=== PATIENT | male | born 1950 | race Caucasian/White ===

== ENCOUNTER 2018-04-30 07:00 | Day surgery (SDC) | payer MEDICARE, BC ==
[~2018-04-30 07:00] MED LIST: Lactated Ringers 1,000 ML IV SCH; Lidocaine 1%/Sod Bicarbonate in NS 8.4% 1 ML Syringe IDERM PRN; Sodium Chloride 0.9% 10 ML Syringe FLUSH PRN
[2018-04-30] MEDS ORDERED: fentaNYL 100 MCG/2 ML SDV ONE (07:01)
[2018-04-30] MEDS ORDERED: Lidocaine 1% 4 ML ONE (07:01)
[2018-04-30] MEDS ORDERED: Propofol 200 MG/20 ML SDV ONE ×2 (07:01→08:16)
--- NOTE | 2018-04-30 07:17 | PCM.PREANE ---
Preanesthetic Assessment - Anesthesia/Transfusion/Family Hx Anesthesia History: Prior Anesthesia Without Reaction Family History of Anesthesia Reaction: No Transfusion History: No Prior Transfusion(s) Intubation History: Unknown - Review of Systems General: No Symptoms Pulmonary: No Symptoms (WENDY with CPAP/BIPAP noted) Cardiovascular: No Symptoms (history of HTN), Dyspnea on Exertion Gastrointestinal: No Symptoms (History of diverticulosis/GERD-treated.), Diarrhea Neurological: No Symptoms (History of vertigo a few years ago.), Tingling (with positions left hand) Other: Reports: Easy Bleeding, Easy Bruising, Diabetes (AM blood sugar= 110 @ 0545), Depression - Physical Assessment NPO Status Date: 04/29/18 NPO Status Time: 21:00 Pulse: 68 O2 Sat by Pulse Oximetry: 94 Respiratory Rate: 20 Blood Pressure: 138/70 Temperature: 36.6 C Height: 1.75 m Weight: 129 kg ASA Class: 3 Airway Class: Mallampati = 3 Dentition: Reports: Partial (upper partial), Missing Tooth/Teeth Thyro-Mental Finger Breadths: 3 Mouth Opening Finger Breadths: 3 ROM/Head Extension: Full Lungs: Clear to Auscultation, Normal Respiratory Effort Cardiovascular: Regular Rate, Regular Rhythm, No Murmurs - Imaging/EKG Impressions: EKG: SR rate=64, borderline prolonged LYN, left anterior fascicular block, abnormal R wave progression. - Allergies Allergies/Adverse Reactions: Allergies Allergy/AdvReac Type Severity Reaction Status Date / Time [id number] Reductase Allergy Muscle Verified 04/29/18 12:59 Inhibitor Aches - Anesthesia Plan Pre-Op Medication Ordered: Beta Nico Beta Nico: Metoprolol Med Last Dose Date: 04/29/18 Med Last Dose Time: 09:00 - Acknowledgements Anesthesia Type Planned: MAC Pt an Appropriate Candidate for the Planned Anesthesia: Yes Alternatives and Risks of Anesthesia Discussed w Pt/Guardian: Yes Pt/Guardian Understands and Agrees with Anesthesia Plan: Yes PreAnesthesia Questionnaire HEENT History: Reports: Impaired Vision, Other (See Below) Other HEENT History: nasal fracture, wears glasses, has partial Cardiovascular History: Reports: High Cholesterol, Hypertension Respiratory History: Reports: Sleep Apnea Other Respiratory History: c-pap Gastrointestinal History: Reports: Diverticulosis, GERD Genitourinary History: Reports: None LICENSED DIRECT ENTRY MIDWIFE History: Reports: None Musculoskeletal History: Reports: None Neurological History: Reports: None Psychiatric History: Reports: None Endocrine/Metabolic History: Reports: Diabetes, Type II Hematologic History: Reports: None Immunologic History: Reports: None Oncologic (Cancer) History: Reports: None Dermatologic History: Reports: None - Past Surgical History Head Surgeries/Procedures: Reports: None Cardiovascular Surgical History: Reports: None Respiratory Surgical History: Reports: None GI Surgical History: Reports: Colonoscopy, Hernia Repair/Other Female Surgical History: Reports: None Male Surgical History: Reports: None Neurological Surgical History: Reports: None Musculoskeletal Surgical History: Reports: None Oncologic Surgical History: Reports: None Dermatological Surgical History: Reports: None - SUBSTANCE USE Smoking Status *Q: Never Smoker Recreational Drug Use History: No - HOME MEDS Home Medications: Home Meds Aspirin 325 mg PO DAILY 04/29/18 [History] Ezetimibe 10 mg PO DAILY 04/29/18 [History] Fenofibrate Nanocrystallized [Fenofibrate] 145 mg PO DAILY 04/29/18 [History] Fish Oil/Harper-3 Fatty Acids [Fish Oil] 1,200 mg PO BID 04/29/18 [History] Glimepiride [Amaryl] 2 mg PO DAILY 04/29/18 [History] Hydrochlorothiazide [Microzide] 12.5 mg PO QAM 04/29/18 [History] Insulin Degludec [Tresiba Flextouch U-200] 38 units SQ DAILY 04/29/18 [History] Metoprolol Succinate [Toprol XL 100mg] 100 mg PO DAILY 04/29/18 [History] Multivitamin [Poly-Vitamin] 1 tab PO DAILY 04/29/18 [History] Omeprazole 20 mg PO DAILY 04/29/18 [History] Sertraline [Zoloft] 150 mg PO DAILY 04/29/18 [History] Spironolactone 50 mg PO DAILY 04/29/18 [History] amLODIPine Bes/Olmesartan Med [Amlodipine-Olmesartan 10-40 mg] 1 tab PO DAILY [History] metFORMIN HCl [Glucophage] 1,000 mg PO BID 04/29/18 [History] traMADol HCl [Tramadol HCl] 50 mg PO Q6H PRN 04/29/18 [History] - CURRENT (IN HOUSE) MEDS Current Meds: Current Medications Lactated Ringer's (Ringers, Lactated) 1,000 mls @ 125 mls/hr IV ASDIRECTED [facility] Stop: 04/30/18 20:00 Lidocaine/Sodium Bicarbonate (Buffered Lidocaine 1% In Ns 8.4%) 0.25 ml IDERM ONETIME PRN PRN Reason: Prior to IV Start Stop: 04/30/18 20:00 Sodium Chloride (Saline Flush) 10 ml FLUSH ASDIRECTED PRN PRN Reason: Keep Vein Open Stop: 04/30/18 20:00 Discontinued Medications Fentanyl (Sublimaze) Confirm Administered Dose 100 mcg .ROUTE .STK-MED ONE Stop: 04/30/18 07:02 Lidocaine HCl (Xylocaine-Mpf 1%) Confirm Administered Dose 4 mls @ as directed .ROUTE .STK-MED ONE Stop: 04/30/18 07:02 Propofol (Diprivan 20 Ml) Confirm Administered Dose 200 mg .ROUTE .STK-MED ONE Stop: 04/30/18 07:02
[2018-04-30] MEDS ORDERED: Lactated Ringers 1,000 ML ONE (08:30)
[2018-04-30 09:00] VITALS: BP 129/74
--- NOTE | 2018-04-30 09:01 | PCM.OPNOTE ---
- General Post-Op/Procedure Note Date of Surgery/Procedure: 04/30/18 Operative Procedure(s): Colonoscopy to cecum with biopsy Findings: Diffuse diverticulosis with transverse colon polyps Pre Op Diagnosis: colorectal cancer screening Post-Op Diagnosis: diffuse diverticulosis and transverse colon polyps Anesthesia Technique: [facility] Primary Surgeon: Gifty Chauhan Anesthesia Provider: Didi Donahue Pathology: 1. Transverse colon polyp removed with cold biopsy forceps 2. Transverse colon polyp removed with cold biopsy forceps Fluid Replacement, Intraop: 1,000 Output, Urine Amount: 0 EBL in mLs: 0 Drain/Tube Comments:: none Complications: none apparent Condition: Good
--- NOTE | 2018-04-30 09:06 | PCM48HPAN ---
Post Anesthesia Note - EVALUATION WITHIN 48HRS OF ANESTHETIC Vital Signs in Normal Range: Yes Patient Participated in Evaluation: Yes Respiratory Function Stable: Yes Airway Patent: Yes Cardiovascular Function Stable: Yes Hydration Status Stable: Yes Pain Control Satisfactory: Yes Nausea and Vomiting Control Satisfactory: Yes Mental Status Recovered: Yes Pulse Rate: 59 SaO2: 95 Resp Rate: 15 Temperature: 37.3 C Blood Pressure: 129/74
--- NOTE | 2018-04-30 10:08 | PCM48HPAN ---
Post Anesthesia Note - EVALUATION WITHIN 48HRS OF ANESTHETIC Vital Signs in Normal Range: Yes Patient Participated in Evaluation: Yes Respiratory Function Stable: Yes Airway Patent: Yes Cardiovascular Function Stable: Yes Hydration Status Stable: Yes Pain Control Satisfactory: Yes Nausea and Vomiting Control Satisfactory: Yes Mental Status Recovered: Yes Pulse Rate: 59 Resp Rate: 15 Temperature: 99.2 F Blood Pressure: 129/74
--- NOTE | 2018-04-30 10:38 | PCM.SN ---
- Free Text/Narrative Note: Operative Report Date of Surgery/Procedure: 04/30/18 Operative Procedure(s): Colonoscopy to cecum with biopsy Pre Op Diagnosis: colorectal cancer screening Post-Op Diagnosis: diffuse diverticulosis and transverse colon polyps Anesthesia Technique: [facility] Primary Surgeon: Gifty Chauhan Anesthesia Provider: Didi Donahue IV Fluid Replacement, Intraop: 1,000cc Output, Urine Amount: 0 EBL : 0cc Findings: Diffuse diverticulosis with transverse colon polyps Specimens: 1. Transverse colon polyp removed with cold biopsy forceps 2. Transverse colon polyp #2 removed with cold biopsy forceps Indication: The patient is a 67-year-old male who presented to the outpatient clinic requesting colorectal cancer screening. The patient has a history of diverticulosis. He is otherwise asymptomatic. We discussed the procedure of a screening colonoscopy including the polypectomy and biopsy. Risks of bleeding and perforation were discussed, the patient understood and wished to proceed. His written and consent was obtained Description of the procedure: The patient was brought to the endoscopy suite and placed in the left lateral decubitus position. Appropriate monitors were applied. The patient was given MAC anesthesia. An anorectal examination was performed, revealing an anterior skin tag, with no internal abnormalities. The scope was placed into the rectum and advanced to cecum with some difficulty requiring abdominal pressure and change in the patient position. The patients cecum was entered, and the ileocecal valve and appendiceal orifice were identified and normal. At this point, the scope was withdrawn, paying careful attention to the mucosa. The patient had suboptimal bowel prep, allowing for visualization of 80-85% of the mucosa. Polypectomy of 2 transverse colon polyps were taken using cold biopsy forceps. In the rectum, the scope was retroflexed and no abnormalities were noted, except for some hemorrhoidal tissue. The scope was placed back in the lumen and the excess air was aspirated. The patient tolerated the procedure well Complications: none apparent Condition: Good, transported to PACU in stable condition Gifty Chauhan MD General Surgery
== END 2018-04-30 09:28 | disposition home or self-care (01) ==
LOC: JD.SDS 07:00
PROVIDERS: ATTEND Surgery
DX: R19.7 Diarrhea, unspecified (principal); R10.32 Left lower quadrant pain; D12.3 Benign neoplasm of transverse colon; K57.30 Diverticulosis of large intestine without perforation or abscess without bleeding; I10 Essential (primary) hypertension; E11.9 Type 2 diabetes mellitus without complications; K21.9 Gastro-esophageal reflux disease without esophagitis; F32.9 Major depressive disorder, single episode, unspecified; E78.5 Hyperlipidemia, unspecified; L81.8 Other specified disorders of pigmentation; Z79.82 Long term (current) use of aspirin; Z79.84 Long term (current) use of oral hypoglycemic drugs; Z79.899 Other long term (current) drug therapy; Z88.8 Allergy status to other drugs, medicaments and biological substances
CPT/HCPCS: 45380; 93005; J2704; J3010; J7120; 00811; J2001

== ENCOUNTER 2018-10-04 07:08 | Day surgery (SDC) | payer MEDICARE, BC ==
[~2018-10-04 07:08] MED LIST changes: +Acetaminophen 325 MG Tab PO SCH; +Bisacodyl 5 MG Tab PO PRN; +Pregabalin 25 MG Cap PO SCH; +oxyCODONE ER 10 MG TAB.ER PO SCH
[2018-10-04] MEDS ORDERED: Bupivacaine 0.25% 30 ML SDV ONE (07:16)
[2018-10-04] MEDS ORDERED: Iodine/Sodium Iodide 2% Tincture 30 ML Bottle ONE (07:16)
[2018-10-04] MEDS ORDERED: Vancomycin 1 GM SDV ONE (07:16)
[2018-10-04] MEDS ORDERED: fentaNYL 100 MCG/2 ML SDV ONE (07:22)
[2018-10-04] MEDS ORDERED: Propofol 200 MG/20 ML SDV ONE ×2 (07:22→09:00)
[2018-10-04] MEDS ORDERED: Lidocaine 1% 4 ML ONE ×2 (07:23→09:01)
[2018-10-04] MEDS ORDERED: Midazolam 1 MG/ML 2 ML SDV ONE (07:23)
[2018-10-04] MEDS ORDERED: ceFAZolin 1 GM Vial ONE ×4 (07:25→09:03)
--- NOTE | 2018-10-04 07:45 | PCM.PREANE ---
Preanesthetic Assessment - Procedure Proposed Procedure: Left total knee replacement - Anesthesia/Transfusion/Family Hx Anesthesia History: Prior Anesthesia Without Reaction Transfusion History: No Prior Transfusion(s) Intubation History: Unknown - Review of Systems General: No Symptoms Pulmonary: Other (WENDY wears a CPAP mask that is with patient ) Cardiovascular: No Symptoms Gastrointestinal: Other (Gerd - controlled ) Neurological: No Symptoms Other: Reports: Diabetes (DM II ), Depression - Physical Assessment NPO Status Date: 10/03/18 NPO Status Time: 22:00 ASA Class: 3 Mental Status: Alert & Oriented x3 Airway Class: Mallampati = 3 Dentition: Reports: Partial (patient removed ) Thyro-Mental Finger Breadths: 3 Mouth Opening Finger Breadths: 5 ROM/Head Extension: Full Lungs: Clear to Auscultation, Normal Respiratory Effort Cardiovascular: Regular Rate, Regular Rhythm - Lab Values: Laboratory Last Values POC Glucose 128 mg/dL (80-115) H 10/04/18 07:29 MRSA (PCR) Negative 09/22/18 10:46 - Allergies Allergies/Adverse Reactions: Allergies Allergy/AdvReac Type Severity Reaction Status Date / Time [id number] Reductase AdvReac Muscle Verified 10/01/18 14:52 Inhibitor Aches - Blood Blood Available: No - Anesthesia Plan Pre-Op Medication Ordered: None Beta Nico: Metoprolol (took own at 0530) - Acknowledgements Anesthesia Type Planned: Spinal Pt an Appropriate Candidate for the Planned Anesthesia: Yes Alternatives and Risks of Anesthesia Discussed w Pt/Guardian: Yes Pt/Guardian Understands and Agrees with Anesthesia Plan: Yes PreAnesthesia Questionnaire HEENT History: Reports: Impaired Vision, Other (See Below) Other HEENT History: nasal fracture, wears glasses, has partial Cardiovascular History: Reports: High Cholesterol, Hypertension Respiratory History: Reports: Sleep Apnea Other Respiratory History: c-pap Gastrointestinal History: Reports: Colon Polyp, Diverticulosis, GERD Genitourinary History: Reports: Chronic Renal Insuffiency, Renal Calculus BEHAVIORAL HEALTH DIRECTOR History: Reports: None Musculoskeletal History: Reports: Osteoarthritis Neurological History: Reports: Concussion, Migraines Psychiatric History: Reports: Depression Endocrine/Metabolic History: Reports: Diabetes, Type II, Obesity/BMI 30+ Hematologic History: Reports: None Immunologic History: Reports: None Oncologic (Cancer) History: Reports: None Dermatologic History: Reports: None, Other (See Below) Other Dermatologic History: pigmented skin lesion - Past Surgical History Head Surgeries/Procedures: Reports: None Cardiovascular Surgical History: Reports: Other (See Below) Other Cardiovascular Surgeries/Procedures: angiogram Respiratory Surgical History: Reports: None GI Surgical History: Reports: Colonoscopy, Hernia, Abdominal Female Surgical History: Reports: None Male Surgical History: Reports: None Endocrine Surgical History: Reports: None Neurological Surgical History: Reports: None Musculoskeletal Surgical History: Reports: None Oncologic Surgical History: Reports: None Dermatological Surgical History: Reports: None - SUBSTANCE USE Smoking Status *Q: Never Smoker Recreational Drug Use History: No - HOME MEDS Home Medications: Home Meds Ezetimibe 10 mg PO DAILY 04/29/18 [History] Fenofibrate Nanocrystallized [Fenofibrate] 145 mg PO DAILY 04/29/18 [History] Glimepiride [Amaryl] 2 mg PO DAILY 04/29/18 [History] Hydrochlorothiazide [Microzide] 12.5 mg PO QAM 04/29/18 [History] Insulin Degludec [Tresiba Flextouch U-200] 40 units SQ BEDTIME 04/29/18 [History ] Metoprolol Succinate [Toprol XL 100mg] 100 mg PO DAILY 04/29/18 [History] Multivitamin [Poly-Vitamin] 1 tab PO DAILY 04/29/18 [History] Omeprazole 20 mg PO DAILY 04/29/18 [History] Sertraline [Zoloft] 150 mg PO DAILY 04/29/18 [History] amLODIPine Bes/Olmesartan Med [Amlodipine-Olmesartan 10-40 mg] 10 - 40 mg PO DAILY 04/29/18 [History] metFORMIN HCl [Glucophage] 1,000 mg PO BID 04/29/18 [History] traMADol HCl [Tramadol HCl] 50 mg PO Q6H PRN 04/29/18 [History] Fish Oil/Fonda-3 Fatty Acids [Fish Oil 1,000 MG] 1 each PO BID 08/08/18 [History ] Spironolactone [Aldactone] 50 mg PO DAILY 08/08/18 [History] Aspirin [Adult Aspirin] 81 mg PO DAILY 10/01/18 [History] SUMAtriptan [Imitrex] 50 mg PO ASDIRECTED PRN 10/01/18 [History] ZOLMitriptan [Zomig] 5 mg PO ASDIRECTED PRN 10/01/18 [History] - CURRENT (IN HOUSE) MEDS Current Meds: Current Medications Acetaminophen (Tylenol) 975 mg PO ONETIME [facility] Stop: 10/04/18 18:00 Last Admin: 10/04/18 07:32 Dose: 975 mg Aspirin (Ecotrin) 325 mg PO BID [facility] Bisacodyl (Dulcolax) 5 mg PO DAILY PRN PRN Reason: Constipation Morphine Sulfate 8 mg/Epinephrine HCl 0.3 mg/Cefuroxime Sodium 750 mg/Ketorolac Tromethamine 30 mg/Sodium Chloride 27.9 ml 0 mg .XX ONETIME ONE Stop: 10/04/18 08:51 Cyclobenzaprine HCl (Flexeril) 10 mg PO TID PRN PRN Reason: Spasms Docusate Sodium (Colace) 100 mg PO BID [facility]IO[facility] Famotidine (Pepcid) 20 mg PO Q12H [facility] Lactated Ringer's (Ringers, Lactated) 1,000 mls @ 125 mls/hr IV ASDIRECTED [facility] Stop: 10/04/18 23:00 Cefazolin Sodium/Dextrose 2 gm (/ Premix) 50 mls @ 100 mls/hr IV Q8H [facility] Stop: 10/04/18 23:14 Ketorolac Tromethamine (Toradol) 15 mg IVPUSH Q6H PRN PRN Reason: Pain Lidocaine/Sodium Bicarbonate (Buffered Lidocaine 1% In Ns 8.4%) 0.25 ml IDERM ONETIME PRN PRN Reason: Prior to IV Start Stop: 10/04/18 18:00 Magnesium Hydroxide (Milk Of Magnesia) 30 ml PO BID PRN PRN Reason: Constipation Morphine Sulfate (Morphine) 2 mg IVPUSH Q2H PRN PRN Reason: Breakthrough Pain Naloxone HCl (Narcan) 0.1 mg IVPUSH Q5M PRN PRN Reason: Oversedation Ondansetron HCl (Zofran) 4 mg IVPUSH Q6H PRN PRN Reason: Nausea/Vomiting Oxycodone HCl (Oxycontin) 10 mg PO ONETIME [facility] Stop: 10/04/18 18:00 Last Admin: 10/04/18 07:31 Dose: 10 mg Oxycodone/Acetaminophen (Percocet 325-5 Mg) 1 - 2 tab PO Q4H PRN PRN Reason: Pain Pregabalin (Lyrica) 50 mg PO ONETIME [facility] Stop: 10/04/18 18:00 Last Admin: 10/04/18 07:31 Dose: 50 mg Senna (Senna) 8.6 mg PO BID PRN PRN Reason: Constipation Sodium Chloride (Saline Flush) 10 ml FLUSH ASDIRECTED PRN PRN Reason: Keep Vein Open Stop: 10/04/18 18:00 Discontinued Medications Bupivacaine HCl (Marcaine 0.25%) Confirm Administered Dose 30 ml .ROUTE .STK- MED ONE Stop: 10/04/18 07:17 Cefazolin Sodium (Ancef) Confirm Administered Dose 2 gm .ROUTE .STK-MED ONE Stop: 10/04/18 07:26 Cefazolin Sodium (Ancef) Confirm Administered Dose 2 gm .ROUTE .STK-MED ONE Stop: 10/04/18 07:32 Fentanyl (Sublimaze) Confirm Administered Dose 100 mcg .ROUTE .STK-MED ONE Stop: 10/04/18 07:23 Lidocaine HCl (Xylocaine-Mpf 1%) Confirm Administered Dose 4 mls @ as directed .ROUTE .STK-MED ONE Stop: 10/04/18 07:24 Iodine (Iodine 2% Mild Tincture) Confirm Administered Dose 30 ml .ROUTE .STK- MED ONE Stop: 10/04/18 07:17 Midazolam HCl (Versed 1 Mg/Ml) Confirm Administered Dose 2 mg .ROUTE .STK-MED ONE Stop: 10/04/18 07:24 Propofol (Diprivan 20 Ml) Confirm Administered Dose 600 mg .ROUTE .STK-MED ONE Stop: 10/04/18 07:23 Tranexamic Acid (Cyklokapron) Confirm Administered Dose 1,000 mg .ROUTE .STK- MED ONE Stop: 10/04/18 07:17 Vancomycin HCl (Vancomycin) Confirm Administered Dose 1 gm .ROUTE .STK-MED ONE Stop: 10/04/18 07:17
[2018-10-04] MEDS ORDERED: Ropivacaine 0.5% 5 MG/ML 30 ML SDV ONE (07:48)
[2018-10-04] MEDS ORDERED: EPINEPHrine 1 MG/ML SDV ONE (07:48)
[2018-10-04] MEDS ORDERED: ePHEDrine/Normal Saline 25 MG/5 ML Syringe ONE (08:48)
[2018-10-04] MEDS ORDERED: Morphine 8 MG, EPINEPHrine 0.3 MG, Cefuroxime 750 MG, Ketorolac 30 MG, Sodium Chloride ... ONE ×5 (08:50)
[2018-10-04] MEDS ORDERED: Lidocaine 1% 2 ML ONE (09:02)
[2018-10-04] MEDS ORDERED: Ondansetron 4 MG/2 ML SDV ONE (09:02)
[2018-10-04] MEDS ORDERED: Lactated Ringers 1,000 ML ONE (09:25)
[2018-10-04] MEDS ORDERED: HYDROmorphone 0.5 MG/0.5 ML Syringe IVPUSH PRN (10:07)
[2018-10-04] MEDS ORDERED: ePHEDrine 50 MG/ML SDV IVPUSH PRN (10:07)
[2018-10-04] MEDS ORDERED: Ondansetron 4 MG/2 ML SDV IVPUSH PRN ×2 (10:07→11:00)
[2018-10-04] MEDS ORDERED: diphenhydrAMINE 50 MG/ML SDV IVPUSH PRN (10:07)
[2018-10-04] MEDS ORDERED: fentaNYL 100 MCG/2 ML SDV IVPUSH PRN (10:07)
--- NOTE | 2018-10-04 10:10 | PCM.POSTAN ---
POST ANESTHESIA ASSESSMENT - MENTAL STATUS Mental Status: Alert - VITAL SIGNS Pulse Rate: 69 SaO2: 93 Resp Rate: 11 Blood Pressure: 102/51 Temperature: 36.4 C - RESPIRATORY Respiratory Status: Respiratory Rate WNL, Airway Patent, O2 Saturation Stable, Supplemental Oxygen - CARDIOVASCULAR CV Status: Pulse Rate WNL, Blood Pressure Stable - GASTROINTESTINAL GI Status: No Symptoms - POST OP HYDRATION Hydration Status: Adequate & Stable
[2018-10-04] MEDS ORDERED: Phenylephrine 1 MG in Sodium Chloride 0.9% 10 ML IV SCH (10:15)
--- NOTE | 2018-10-04 10:53 | CR ---
Left knee: AP and lateral views of the left knee were obtained. Comparison: No previous knee study. Knee prosthesis is seen. Components are aligned. Soft tissue air is noted from the surgical procedure. Underlying bony structures are intact. Impression: 1. Satisfactory radiographic appearance of recently placed left knee prosthesis. Diagnostic code #2
[2018-10-04] MEDS ORDERED: Naloxone 0.4 MG/ML SDV IVPUSH PRN (11:00)
[2018-10-04] MEDS ORDERED: Ketorolac 15 MG/ML SDV IVPUSH PRN (11:00)
[2018-10-04] MEDS ORDERED: Morphine 2 MG/ML Syringe IVPUSH PRN (11:00)
[2018-10-04] MEDS ORDERED: Magnesium Hydroxide 400 MG/5 ML Susp 30 ML Cup PO PRN (11:00)
[2018-10-04] MEDS ORDERED: Sennosides 8.6 MG Tab PO PRN (11:00)
--- NOTE | 2018-10-04 11:16 | PCM.SN ---
- Free Text/Narrative Note: Left selective femoral nerve block at the adductor canal for post-procedure pain control Time Out: 1047 Start: 1047 End: 1055 Chart reviewed. Consent signed. Questions answered. Appropriate monitors applied. Time out performed. Left mid-shaft femur evaluated with ultrasound. Scanning medially femur, I was able to identify the femoral artery in the adductor canal. The saphenous nerve was lateral to the artery. The skin was prepped lateral to the ultrasound probe with chlorahexadine. The 21ga 4 insulated block needle was inserted under direct ultrasound guidance into the adductor canal. 20mL of 0.5% ropivacaine with 1:200,000 epinephrine was injected cirmcumferentially about the nerve with intermittent negative aspiration every 5mL. Patient tolerated the procedure well. See pictures on progress note and vital signs on nurses notes. Block completed postoperatively. Trae Griffin CRNA
[2018-10-04] MEDS ORDERED: SUMAtriptan 50 MG Tab PO PRN (12:07)
[2018-10-04] MEDS ORDERED: ZOLMITRIPTAN 5 MG PO PRN (12:07)
--- NOTE | 2018-10-04 13:14 | PCM.SN ---
- Free Text/Narrative Note: Tom is a 68 yo male patient of Dr. Shultz who is post-operative day 0 of L TKA. Hospital medicine was consulted for post-operative medical care. At this time he is stable. Pain is controlled. He denies any chest pain, shortness of breath , palpitations, nausea, or vomiting. He carries a history of: HTN, HLD, CKD, OA , WENDY w/ CPAP, GERD, DM2, Depression. He never smoked. He is a full code. His PCP is Dr. Uribe.
[2018-10-04] MEDS: Acetaminophen/oxyCODONE 325-5 MG Tab PO PRN ×3 (13:23→22:15)
[2018-10-04] MEDS: Insulin Lispro 100 Unit/ML 3 ML KwikPen SUBCUT SCH ×3 (13:26→21:01)
[2018-10-04] MEDS: ceFAZolin 2 GM in Premix Bag 1 BAG IV SCH (17:05)
[2018-10-04] MEDS: ceFAZolin 1 GM in Premix Bag 1 BAG IV SCH (17:05)
[2018-10-04] MEDS: Docusate Sodium 100 MG Cap PO SCH (20:53)
[2018-10-04] MEDS ORDERED: Famotidine 20 MG Tab PO SCH (21:00)
[2018-10-04] MEDS ORDERED: INSULIN DEGLUDEC 40 UNIT SUBCUT SCH (21:00)
[2018-10-05] MEDS: ceFAZolin 1 GM in Premix Bag 1 BAG IV SCH ×2 (00:38→08:05)
[2018-10-05] MEDS: ceFAZolin 2 GM in Premix Bag 1 BAG IV SCH ×2 (00:38→08:04)
[2018-10-05] MEDS: Cyclobenzaprine 10 MG Tab PO PRN ×2 (02:27→09:27)
[2018-10-05] MEDS: Acetaminophen/oxyCODONE 325-5 MG Tab PO PRN ×2 (02:27→06:33)
--- NOTE | 2018-10-05 06:50 | PCM.SN ---
- Free Text/Narrative Note: Tom is a 68 yo [address] patient of Dr[address] Shultz who is post-operative day 1 of L TKA. Hospital medicine was consulted for post-operative medical care. At this time he is stable. Pain is controlled. Labs are stable. He denies any chest pain, shortness of breath, palpitations, nausea, or vomiting. He carries a history of : HTN, HLD, CKD, OA, WENDY w/ CPAP, GERD, DM2, Depression. He never smoked. He is a full code. His PCP is Dr. Uribe. From a Hospitalist standpoint, the pt is ready for discharge pending primary team decision.
[2018-10-05] MEDS ORDERED: Hydrochlorothiazide 12.5 MG Cap PO SCH (08:00)
[2018-10-05] MEDS: Insulin Lispro 100 Unit/ML 3 ML KwikPen SUBCUT SCH (08:05)
[2018-10-05] MEDS: Docusate Sodium 100 MG Cap PO SCH (08:06)
[2018-10-05] MEDS: Aspirin 325 MG Tab.EC PO SCH ×2 (08:07→09:27)
--- NOTE | 2018-10-05 08:13 | PCM.SURGPN ---
- General Info Date of Service: 10/05/18 POD#: 1 Functional Status: Reports: Pain Controlled, Tolerating Diet, Ambulating, Urinating, Incentive Spirometry - Review of Systems Musculoskeletal: Reports: Other (The pt states he did well with ambulating in the halls.) - Patient Data Vitals - Most Recent: Last Vital Signs Temp 97.9 F 10/05/18 04:04 Pulse 72 10/05/18 04:04 Resp 16 10/05/18 04:04 BP 125/77 10/05/18 04:04 Pulse Ox 95 10/05/18 04:04 Weight - Most Recent: 292 lb I&O - Last 24 Hours: Intake & Output 10/04/18 10/05/18 10/05/18 22:59 06:59 14:59 Intake Total 380 Balance 380 Lab Results Last 24 Hrs: Laboratory Results - last 24 hr 10/04/18 10/04/18 10/04/18 Range/Units 10:04 12:30 17:04 WBC (4.23-9.07) K/mm3 RBC (4.63-6.08) M/mm3 Hgb (13.7-17.5) gm/L Hct (40.1-51.0) % MCV (79.0-92.2) fl MCH (25.7-32.2) pg MCHC (32.2-35.5) g/dl RDW Std Deviation (35.1-43.9) fL Plt Count (163-337) K/mm3 MPV (9.4-12.3) fl Sodium (136-145) mEq/L Potassium (3.5-5.1) mEq/L Chloride (98-107) mEq/L Carbon Dioxide (21-32) mEq/L Anion Gap (5-15) BUN (7-18) mg/dL Creatinine (0.7-1.3) mg/dL Est Cr Clr Drug Dosing mL/min Estimated GFR (MDRD) (>60) mL/min BUN/Creatinine Ratio (14-18) Glucose (80-115) mg/dL POC Glucose 131 H 165 H 209 H (80-115) mg/dL Calcium (8.5-10.1) mg/dL Total Bilirubin (0.2-1.0) mg/dL AST (15-37) U/L ALT (16-63) U/L Alkaline Phosphatase (46-116) U/L Total Protein (6.4-8.2) g/dl Albumin (3.4-5.0) g/dl Globulin gm/dL Albumin/Globulin Ratio (1-2) 10/04/18 10/05/18 10/05/18 Range/Units 20:41 05:43 05:43 WBC 7.20 (4.23-9.07) K/mm3 RBC 4.33 L (4.63-6.08) M/mm3 Hgb 12.4 L (13.7-17.5) gm/L Hct 37.2 L (40.1-51.0) % MCV 85.9 (79.0-92.2) fl MCH 28.6 (25.7-32.2) pg MCHC 33.3 (32.2-35.5) g/dl RDW Std Deviation 43.3 (35.1-43.9) fL Plt Count 122 L (163-337) K/mm3 MPV 12.3 (9.4-12.3) fl Sodium 138 (136-145) mEq/L Potassium 4.3 (3.5-5.1) mEq/L Chloride 103 (98-107) mEq/L Carbon Dioxide 28 (21-32) mEq/L Anion Gap 11.3 (5-15) BUN 27 H (7-18) mg/dL Creatinine 1.5 H (0.7-1.3) mg/dL Est Cr Clr Drug Dosing 49.34 mL/min Estimated GFR (MDRD) 47 (>60) mL/min BUN/Creatinine Ratio 18.0 (14-18) Glucose 188 H (80-115) mg/dL POC Glucose 275 H (80-115) mg/dL Calcium 9.0 (8.5-10.1) mg/dL Total Bilirubin 0.4 (0.2-1.0) mg/dL AST 22 (15-37) U/L ALT 30 (16-63) U/L Alkaline Phosphatase 46 (46-116) U/L Total Protein 6.2 L (6.4-8.2) g/dl Albumin 3.0 L (3.4-5.0) g/dl Globulin 3.2 gm/dL Albumin/Globulin Ratio 0.9 L (1-2) 10/05/18 Range/Units 06:39 WBC (4.23-9.07) K/mm3 RBC (4.63-6.08) M/mm3 Hgb (13.7-17.5) gm/L Hct (40.1-51.0) % MCV (79.0-92.2) fl MCH (25.7-32.2) pg MCHC (32.2-35.5) g/dl RDW Std Deviation (35.1-43.9) fL Plt Count (163-337) K/mm3 MPV (9.4-12.3) fl Sodium (136-145) mEq/L Potassium (3.5-5.1) mEq/L Chloride (98-107) mEq/L Carbon Dioxide (21-32) mEq/L Anion Gap (5-15) BUN (7-18) mg/dL Creatinine (0.7-1.3) mg/dL Est Cr Clr Drug Dosing mL/min Estimated GFR (MDRD) (>60) mL/min BUN/Creatinine Ratio (14-18) Glucose (80-115) mg/dL POC Glucose 212 H (80-115) mg/dL Calcium (8.5-10.1) mg/dL Total Bilirubin (0.2-1.0) mg/dL AST (15-37) U/L ALT (16-63) U/L Alkaline Phosphatase (46-116) U/L Total Protein (6.4-8.2) g/dl Albumin (3.4-5.0) g/dl Globulin gm/dL Albumin/Globulin Ratio (1-2) Med Orders - Current: Current Medications Amlodipine Besylate (Norvasc) 10 mg PO DAILY [facility] Last Admin: 10/05/18 08:07 Dose: Not Given Aspirin (Ecotrin) 325 mg PO BID [facility] Last Admin: 10/05/18 08:07 Dose: Not Given Bisacodyl (Dulcolax) 5 mg PO DAILY PRN PRN Reason: Constipation Cyclobenzaprine HCl (Flexeril) 10 mg PO TID PRN PRN Reason: Spasms Last Admin: 10/05/18 02:27 Dose: 10 mg Docusate Sodium (Colace) 100 mg PO BID [facility] Last Admin: 10/05/18 08:06 Dose: Not Given Ezetimibe (Zetia) 10 mg PO DAILY [facility] Last Admin: 10/05/18 08:07 Dose: Not Given Fenofibrate (Tricor) 145 mg PO DAILY [facility] Last Admin: 10/05/18 08:07 Dose: Not Given Glimepiride (Amaryl) 2 mg PO DAILY [facility] Last Admin: 10/05/18 08:06 Dose: Not Given Hydrochlorothiazide (Hydrochlorothiazide) 12.5 mg PO QAM [facility] Last Admin: 10/05/18 08:06 Dose: Not Given Cefazolin Sodium/Dextrose 2 gm (/ Premix) 50 mls @ 100 mls/hr IV Q8H [facility] Stop: 10/05/18 09:29 Last Admin: 10/05/18 08:04 Dose: 100 mls/hr Cefazolin Sodium/Dextrose 1 gm (/ Premix) 50 mls @ 100 mls/hr IV Q8H [facility] Stop: 10/05/18 09:29 Last Admin: 10/05/18 08:05 Dose: 100 mls/hr Insulin Human Lispro (Humalog) 0 unit SUBCUT QIDACANDBED [facility]; Protocol Last Admin: 10/05/18 08:05 Dose: 2 unit Losartan Potassium (Cozaar) 100 mg PO DAILY [facility] Last Admin: 10/05/18 08:06 Dose: Not Given Magnesium Hydroxide (Milk Of Magnesia) 30 ml PO BID PRN PRN Reason: Constipation Metformin HCl (Glucophage) 1,000 mg PO BID [facility] Last Admin: 10/05/18 08:07 Dose: Not Given Metoprolol Succinate (Toprol Xl) 100 mg PO DAILY [facility] Last Admin: 10/05/18 08:07 Dose: Not Given Morphine Sulfate (Morphine) 2 mg IVPUSH Q2H PRN PRN Reason: Breakthrough Pain Multivitamins (Thera) 1 each PO DAILY [facility] Last Admin: 10/05/18 08:07 Dose: Not Given Naloxone HCl (Narcan) 0.1 mg IVPUSH Q5M PRN PRN Reason: Oversedation Ondansetron HCl (Zofran) 4 mg IVPUSH Q6H PRN PRN Reason: Nausea/Vomiting Oxycodone/Acetaminophen (Percocet 325-5 Mg) 1 - 2 tab PO Q4H PRN PRN Reason: Pain Last Admin: 10/05/18 06:33 Dose: 2 tab Pantoprazole Sodium (Protonix) 40 mg PO DAILY [facility] Last Admin: 10/05/18 08:07 Dose: Not Given Insulin Degludec [ Tresiba Flextouch U- 200] 40 Units 0 each SUBCUT BEDTIME [facility] Last Admin: 10/04/18 20:58 Dose: 40 each Senna (Senna) 8.6 mg PO BID PRN PRN Reason: Constipation Sertraline HCl (Zoloft) 150 mg PO DAILY [facility] Last Admin: 10/05/18 08:07 Dose: Not Given Spironolactone (Aldactone) 50 mg PO DAILY [facility] Last Admin: 10/05/18 08:06 Dose: Not Given Discontinued Medications Acetaminophen (Tylenol) 975 mg PO ONETIME [facility] Stop: 10/04/18 18:00 Last Admin: 10/04/18 07:32 Dose: 975 mg Bupivacaine HCl (Marcaine 0.25%) Confirm Administered Dose 30 ml .ROUTE .STK- MED ONE Stop: 10/04/18 07:17 Last Admin: 10/04/18 09:21 Dose: 30 ml Cefazolin Sodium (Ancef) Confirm Administered Dose 2 gm .ROUTE .STK-MED ONE Stop: 10/04/18 07:26 Cefazolin Sodium (Ancef) Confirm Administered Dose 2 gm .ROUTE .STK-MED ONE Stop: 10/04/18 07:32 Cefazolin Sodium (Ancef) Confirm Administered Dose 1 gm .ROUTE .STK-MED ONE Stop: 10/04/18 08:35 Last Admin: 10/04/18 09:15 Dose: 2 gm Cefazolin Sodium (Ancef) Confirm Administered Dose 2 gm .ROUTE .STK-MED ONE Stop: 10/04/18 09:04 Morphine Sulfate 8 mg/Epinephrine HCl 0.3 mg/Cefuroxime Sodium 750 mg/Ketorolac Tromethamine 30 mg/Sodium Chloride 27.9 ml 0 mg .XX ONETIME ONE Stop: 10/04/18 08:51 Last Admin: 10/04/18 09:21 Dose: 788.3 mg Diphenhydramine HCl (Benadryl) 25 mg IVPUSH Q6H PRN PRN Reason: pruritis Stop: 10/04/18 16:00 Ephedrine Sulfate (Ephedrine In Ns) Confirm Administered Dose 25 mg .ROUTE .STK- MED ONE Stop: 10/04/18 08:49 Ephedrine Sulfate (Ephedrine Sulfate) 5 mg IVPUSH ASDIRECTED PRN PRN Reason: Hypotension Stop: 10/04/18 16:00 Epinephrine HCl (Adrenalin) Confirm Administered Dose 1 mg .ROUTE .STK-MED ONE Stop: 10/04/18 07:49 Famotidine (Pepcid) 20 mg PO Q12H [facility] Fentanyl (Sublimaze) Confirm Administered Dose 100 mcg .ROUTE .STK-MED ONE Stop: 10/04/18 07:23 Fentanyl (Sublimaze) 50 mcg IVPUSH Q5M PRN PRN Reason: Pain Stop: 10/04/18 14:00 Hydromorphone HCl (Dilaudid) 0.5 mg IVPUSH Q15M PRN PRN Reason: Pain (severe 7-10) Stop: 10/04/18 14:00 Lactated Ringer's (Ringers, Lactated) 1,000 mls @ 125 mls/hr IV ASDIRECTED [facility] Stop: 10/04/18 23:00 Last Admin: 10/04/18 07:29 Dose: 125 mls/hr Lidocaine HCl (Xylocaine-Mpf 1%) Confirm Administered Dose 4 mls @ as directed .ROUTE .ST-MED ONE Stop: 10/04/18 07:24 Lidocaine HCl (Xylocaine-Mpf 1%) Confirm Administered Dose 4 mls @ as directed .ROUTE .STK-MED ONE Stop: 10/04/18 09:02 Lidocaine HCl (Xylocaine-Mpf 1%) Confirm Administered Dose 2 mls @ as directed .ROUTE .ST-MED ONE Stop: 10/04/18 09:03 Lactated Ringer's (Ringers, Lactated) Confirm Administered Dose 1,000 mls @ as directed .ROUTE .STK-MED ONE Stop: 10/04/18 09:26 Phenylephrine HCl 1 mg/ Sodium (Chloride) 10.1 mls @ 1 mls/sec IV TITRATE [facility]; Protocol Stop: 10/04/18 14:00 Iodine (Iodine 2% Mild Tincture) Confirm Administered Dose 30 ml .ROUTE .STK- MED ONE Stop: 10/04/18 07:17 Last Admin: 10/04/18 09:12 Dose: 18 ml Ketorolac Tromethamine (Toradol) 15 mg IVPUSH Q6H PRN PRN Reason: Pain Last Admin: 10/04/18 20:54 Dose: 15 mg Lidocaine/Sodium Bicarbonate (Buffered Lidocaine 1% In Ns 8.4%) 0.25 ml IDERM ONETIME PRN PRN Reason: Prior to IV Start Stop: 10/04/18 18:00 Last Admin: 10/04/18 07:28 Dose: 0.25 ml Midazolam HCl (Versed 1 Mg/Ml) Confirm Administered Dose 2 mg .ROUTE .STK-MED ONE Stop: 10/04/18 07:24 Non-Formulary Medication (Zolmitriptan [Zomig]) 5 mg PO ASDIRECTED PRN PRN Reason: migraine Ondansetron HCl (Zofran) Confirm Administered Dose 4 mg .ROUTE .STK-MED ONE Stop: 10/04/18 09:03 Ondansetron HCl (Zofran) 4 mg IVPUSH ONETIME PRN PRN Reason: Nausea/Vomiting Stop: 10/04/18 14:00 Oxycodone HCl (Oxycontin) 10 mg PO ONETIME [facility] Stop: 10/04/18 18:00 Last Admin: 10/04/18 07:31 Dose: 10 mg Pregabalin (Lyrica) 50 mg PO ONETIME [facility] Stop: 10/04/18 18:00 Last Admin: 10/04/18 07:31 Dose: 50 mg Propofol (Diprivan 20 Ml) Confirm Administered Dose 600 mg .ROUTE .STK-MED ONE Stop: 10/04/18 07:23 Propofol (Diprivan 20 Ml) Confirm Administered Dose 600 mg .ROUTE .STK-MED ONE Stop: 10/04/18 09:01 Ropivacaine (Naropin 0.5%) Confirm Administered Dose 30 ml .ROUTE .STK-MED ONE Stop: 10/04/18 07:49 Sodium Chloride (Saline Flush) 10 ml FLUSH ASDIRECTED PRN PRN Reason: Keep Vein Open Stop: 10/04/18 18:00 Sumatriptan Succinate (Imitrex) 50 mg PO ASDIRECTED PRN PRN Reason: migraine Tranexamic Acid (Cyklokapron) Confirm Administered Dose 1,000 mg .ROUTE .STK- MED ONE Stop: 10/04/18 07:17 Last Admin: 10/04/18 09:25 Dose: 1,000 mg Vancomycin HCl (Vancomycin) Confirm Administered Dose 1 gm .ROUTE .STK-MED ONE Stop: 10/04/18 07:17 Last Admin: 10/04/18 09:22 Dose: 1 gm - Exam Wound/Incisions: Dressing Dry and Intact General: Alert, Cooperative, No Acute Distress Lungs: Normal Respiratory Effort Extremities: Other (NVS intact for BLE. Godfrey's negative.) - Problem List Review Problem List Initiated/Reviewed/Updated: Yes - My Orders Last 24 Hours: Active Orders 24 hr Category Date Time Status Blood Glucose Check, Bedside [RC] ONETIME Care 10/04/18 10:07 Inactive Blood Glucose Check, Bedside [RC] QIDACANDBED Care 10/04/18 13:10 Active Cooling Warming Measures [RC] ASDIRECTED Care 10/04/18 10:07 Inactive Notify Provider [RC] ASDIRECTED Care 10/04/18 10:07 Active Ready for Discharge [RC] PER UNIT ROUTINE Care 10/05/18 08:11 Ordered Vital Signs [RC] Q15M Care 10/04/18 10:06 Inactive Aspirin [Ecotrin] Med 10/05/18 09:00 Active 325 mg PO BID Docusate Sodium [Colace] Med 10/04/18 21:00 Active 100 mg PO BID Ezetimibe [Zetia] Med 10/05/18 09:00 Active 10 mg PO DAILY Fenofibrate Nanocrystallized [Tricor] Med 10/05/18 09:00 Active 145 mg PO DAILY Glimepiride [Amaryl] Med 10/05/18 09:00 Active 2 mg PO DAILY Insulin Lispro [HumaLOG] Med 10/04/18 13:30 Active See Protocol SUBCUT QIDACANDBED Losartan [Cozaar] Med 10/05/18 09:00 Active 100 mg PO DAILY Magnesium Hydroxide [Milk of Magnesia] Med 10/04/18 11:00 Active 30 ml PO BID PRN Metoprolol Succinate [Toprol XL] Med 10/05/18 09:00 Active 100 mg PO DAILY Morphine Med 10/04/18 11:00 Active 2 mg IVPUSH Q2H PRN Multivitamins,Therapeutic [Thera] Med 10/05/18 09:00 Active 1 each PO DAILY Naloxone [Narcan] Med 10/04/18 11:00 Active 0.1 mg IVPUSH Q5M PRN Ondansetron [Zofran] Med 10/04/18 11:00 Active 4 mg IVPUSH Q6H PRN Pantoprazole [ProTONIX] Med 10/05/18 09:00 Active 40 mg PO DAILY Patient's Own Medication [Ptom] Med 10/04/18 21:00 Active 0 each SUBCUT BEDTIME Sennosides [Senna] Med 10/04/18 11:00 Active 8.6 mg PO BID PRN Sertraline [Zoloft] Med 10/05/18 09:00 Active 150 mg PO DAILY Spironolactone [Aldactone] Med 10/05/18 09:00 Active 50 mg PO DAILY amLODIPine [Norvasc] Med 10/05/18 09:00 Active 10 mg PO DAILY ceFAZolin [Ancef] 1 gm Med 10/04/18 17:00 Active Premix Bag 1 bag IV Q8H ceFAZolin [Ancef] 2 gm Med 10/04/18 17:00 Active Premix Bag 1 bag IV Q8H hydroCHLOROthiazide Med 10/05/18 08:00 Active 12.5 mg PO QAM metFORMIN [Glucophage] Med 10/05/18 09:00 Active 1,000 mg PO BID Medication Orders Amlodipine Besylate (Norvasc) 10 mg PO DAILY [facility] Last Admin: 10/05/18 08:07 Dose: Not Given Aspirin (Ecotrin) 325 mg PO BID [facility] Last Admin: 10/05/18 08:07 Dose: Not Given Bisacodyl (Dulcolax) 5 mg PO DAILY PRN PRN Reason: Constipation Cyclobenzaprine HCl (Flexeril) 10 mg PO TID PRN PRN Reason: Spasms Last Admin: 10/05/18 02:27 Dose: 10 mg Docusate Sodium (Colace) 100 mg PO BID [facility] Last Admin: 10/05/18 08:06 Dose: Not Given Admin: 10/04/18 20:53 Dose: 100 mg Ezetimibe (Zetia) 10 mg PO DAILY [facility] Last Admin: 10/05/18 08:07 Dose: Not Given Fenofibrate (Tricor) 145 mg PO DAILY [facility] Last Admin: 10/05/18 08:07 Dose: Not Given Glimepiride (Amaryl) 2 mg PO DAILY [facility] Last Admin: 10/05/18 08:06 Dose: Not Given Hydrochlorothiazide (Hydrochlorothiazide) 12.5 mg PO QAM [facility] Last Admin: 10/05/18 08:06 Dose: Not Given Cefazolin Sodium/Dextrose 2 gm (/ Premix) 50 mls @ 100 mls/hr IV Q8H [facility] Stop: 10/05/18 09:29 Last Admin: 10/05/18 08:04 Dose: 100 mls/hr Infusion: 10/05/18 01:08 Dose: 100 mls/hr Admin: 10/05/18 00:38 Dose: 100 mls/hr Infusion: 10/04/18 17:35 Dose: 100 mls/hr Admin: 10/04/18 17:05 Dose: 100 mls/hr Cefazolin Sodium/Dextrose 1 gm (/ Premix) 50 mls @ 100 mls/hr IV Q8H [facility] Stop: 10/05/18 09:29 Last Admin: 10/05/18 08:05 Dose: 100 mls/hr Infusion: 10/05/18 01:08 Dose: 100 mls/hr Admin: 10/05/18 00:38 Dose: 100 mls/hr Infusion: 10/04/18 17:35 Dose: 100 mls/hr Admin: 10/04/18 17:05 Dose: 100 mls/hr Insulin Human Lispro (Humalog) 0 unit SUBCUT QIDACANDBED [facility]; Protocol Last Admin: 10/05/18 08:05 Dose: 2 unit Admin: 10/04/18 21:01 Dose: 3 unit Admin: 10/04/18 17:15 Dose: 2 unit Admin: 10/04/18 13:26 Dose: 1 unit Losartan Potassium (Cozaar) 100 mg PO DAILY [facility] Last Admin: 10/05/18 08:06 Dose: Not Given Magnesium Hydroxide (Milk Of Magnesia) 30 ml PO BID PRN PRN Reason: Constipation Metformin HCl (Glucophage) 1,000 mg PO BID [facility] Last Admin: 10/05/18 08:07 Dose: Not Given Metoprolol Succinate (Toprol Xl) 100 mg PO DAILY [facility] Last Admin: 10/05/18 08:07 Dose: Not Given Morphine Sulfate (Morphine) 2 mg IVPUSH Q2H PRN PRN Reason: Breakthrough Pain Multivitamins (Thera) 1 each PO DAILY [facility] Last Admin: 10/05/18 08:07 Dose: Not Given Naloxone HCl (Narcan) 0.1 mg IVPUSH Q5M PRN PRN Reason: Oversedation Ondansetron HCl (Zofran) 4 mg IVPUSH Q6H PRN PRN Reason: Nausea/Vomiting Oxycodone/Acetaminophen (Percocet 325-5 Mg) 1 - 2 tab PO Q4H PRN PRN Reason: Pain Last Admin: 10/05/18 06:33 Dose: 2 tab Admin: 10/05/18 02:27 Dose: 2 tab Admin: 10/04/18 22:15 Dose: 2 tab Admin: 10/04/18 17:23 Dose: 2 tab Admin: 10/04/18 13:23 Dose: 2 tab Pantoprazole Sodium (Protonix) 40 mg PO DAILY [facility] Last Admin: 10/05/18 08:07 Dose: Not Given Insulin Degludec [ Tresiba Flextouch U- 200] 40 Units 0 each SUBCUT BEDTIME [facility] Last Admin: 10/04/18 20:58 Dose: 40 each Senna (Senna) 8.6 mg PO BID PRN PRN Reason: Constipation Sertraline HCl (Zoloft) 150 mg PO DAILY [facility] Last Admin: 10/05/18 08:07 Dose: Not Given Spironolactone (Aldactone) 50 mg PO DAILY [facility] Last Admin: 10/05/18 08:06 Dose: Not Given - Assessment Assessment (Free Text/Narrative):: POD#1 - left TKA - Plan Plan (Free Text/Narrative):: 1. Hgb 12.4. 2. Discharge to home today. 3. Outpatient therapy. 4. 325mg PO BID ASA, frequent mobility, TEDs. The pt's case was discussed with Dr. Shultz.
[2018-10-05 08:26] VITALS: BP 149/89
--- NOTE | 2018-10-05 08:55 | PCM48HPAN ---
Post Anesthesia Note - EVALUATION WITHIN 48HRS OF ANESTHETIC Vital Signs in Normal Range: Yes Patient Participated in Evaluation: Yes Respiratory Function Stable: Yes Airway Patent: Yes Cardiovascular Function Stable: Yes Hydration Status Stable: Yes (taking po pain meds) Pain Control Satisfactory: Yes Nausea and Vomiting Control Satisfactory: Yes Mental Status Recovered: Yes Pulse Rate: 72 Resp Rate: 20 Temperature: 99.5 F Blood Pressure: 149/89
[2018-10-05] MEDS ORDERED: amLODIPine 10 MG Tab PO SCH (09:00)
[2018-10-05] MEDS ORDERED: Losartan 100 MG Tab PO SCH (09:00)
[2018-10-05] MEDS ORDERED: Pantoprazole 40 MG Tab.CR PO SCH (09:00)
[2018-10-05] MEDS ORDERED: Multivitamins,Therapeutic Tab PO SCH (09:00)
[2018-10-05] MEDS ORDERED: Metoprolol Succinate 50 MG Tab.ER PO SCH (09:00)
[2018-10-05] MEDS ORDERED: Glimepiride 2 MG Tab PO SCH (09:00)
[2018-10-05] MEDS ORDERED: Ezetimibe 10 MG Tab PO SCH (09:00)
[2018-10-05] MEDS ORDERED: Sertraline 50 MG Tab PO SCH (09:00)
[2018-10-05] MEDS ORDERED: Spironolactone 25 MG Tab PO SCH (09:00)
[2018-10-05] MEDS ORDERED: metFORMIN 500 MG Tab PO SCH (09:00)
[2018-10-05] MEDS ORDERED: Fenofibrate Nanocrystallized 145 MG Tab PO SCH (09:00)
--- NOTE | 2018-10-07 10:05 | PCM.OPNOTE ---
- General Post-Op/Procedure Note Date of Surgery/Procedure: 10/04/18 Operative Procedure(s): left total knee arthroplasty Pre Op Diagnosis: left knee osteoarthrosis Post-Op Diagnosis: Same Anesthesia Technique: Local, MAC, Spinal Primary Surgeon: Jerome Shultz Anesthesia Provider: Conchita Saldivar Engineer Remote Control Diesel: Viktoriya Rubio Engineer Remote Control Diesel: Kenia Nance EBL in mLs: 400 Complications: None Condition: Good
--- NOTE | 2018-10-08 09:09 | OR ---
DATE OF OPERATION: 10/04/2018 SURGEON: Jerome Shultz MD OPERATION PERFORMED: Left total knee arthroplasty. PREOPERATIVE DIAGNOSIS: Left knee osteoarthrosis. POSTOPERATIVE DIAGNOSIS: Left knee osteoarthrosis. ANESTHESIA: Local MAC with spinal. ANESTHESIA PROVIDER: Conchita Saldivar. FLUID DYNAMICIST: Viktoriya Rubio PA-C; and Kenia Nance LPN. ESTIMATED BLOOD LOSS: 400 mL. COMPLICATIONS: None. CONDITION: Stable. IMPLANTS: 1. Pierre size 6 press-fit CR femur. 2. Hotchkiss size 6 press-fit tibial base plate. 3. Hotchkiss size 6, 9 mm CS polyethylene insert instead. 4. Pierre size 32 x 10 mm press-fit patella. DESCRIPTION OF PROCEDURE: The patient was identified in the preop holding area. Proper site was marked and identified by the surgeon. The patient was taken back to the operating theater. After adequate anesthesia, the patient's left lower extremity had a nonsterile tourniquet applied and it was sterilely prepped and draped in the usual sterile fashion. OR time-out was performed. The patient received 2 g IV Ancef. At this time, the left lower extremity was exsanguinated. Tourniquet was insufflated to 300 mmHg. Standard medial parapatellar incision was made. Medial parapatellar arthrotomy was created. Deep fibers of the MCL were raised and anterior fat pad was resected. At this time, attention was turned to the patella. Patella measured 24, it was resected to a 14 for 32 x 10 mm patella. Drill holes were then drilled and found to be in adequate position. The drill was then drilled in the distal femur and the intramedullary distal femoral cutting guide was then placed. 8 mm was resected off the distal femur and was found to be an adequate resection. Sizing guide was placed. It was found to be a size 6 press-fit CR femur that was shown on the implant record at the beginning of this dictation. The drill holes were drilled for the epicondylar axis using Whitesides line and epicondyles as reference. At this time, the 4-in - 1 cutting block was placed. An anterior posterior and anterior and posterior chamfer cuts were then completed. Attention was turned to the tibia. The posterior medial lateral retractors were placed. The extramedullary tibial guide was placed. It was placed in the old footprint of the ACL. It was aligned with the center of the ankle and 0 degrees of slope, 9 mm was then resected off the unaffected side. There was found to be an acceptable reduction. At this time, posterior osteophytes were removed along with medial and lateral meniscus. A trial implant was placed with a correct sized tibia that was mentioned at the beginning of the dictation. A Hotchkiss size 6, 9 mm CS polyethylene insert was then placed. The patient's knee was brought through range of motion. The patella was tracking centrally and was stable to varus and valgus stress. Alignment was found to be roughly at 0 degrees. The tibia was stamped and drilled in proper rotation. The universal tibial base plate was impacted in place. Next, the Pierre size 6 press-fit CR femur impacted into place and the Pierre size 6, 9 mm CS polyethylene insert was placed. The patient's knee was brought into full extension. The patella was then press-fit in place at this time. Tourniquet was deflated. One liter dilute Betadine solution was irrigated through the knee along with 3 L of pulse lavage irrigation with Ancef. Periarticular injection was then completed. The patient's knee was brought through a range of motion. Knee was found to be stable to varus valgus stress, the patella was tracking centrally with full range of motion. At this time, a #2 barbed suture was used for closure of the medial parapatellar arthrotomy. Topical tranexamic acid was placed. 2-0 Vicryl was used subcutaneously, Prineo was used for the skin. The patient tolerated the procedure well and was sent to the PACU in stable condition. HASMUKH /[id number] JAYLENE
== END 2018-10-05 10:53 | disposition home or self-care (01) ==
LOC: JD.SDS 07:08 → JD.MS 07:10 → JD.SDS 10-05 10:53
PROVIDERS: ATTEND Orthopaedic Surgery
DX: M17.12 Unilateral primary osteoarthritis, left knee (principal); I12.9 Hypertensive chronic kidney disease with stage 1 through stage 4 chronic kidney disease, or unspecified chronic kidney disease; E11.22 Type 2 diabetes mellitus with diabetic chronic kidney disease; N18.9 Chronic kidney disease, unspecified; E66.9 Obesity, unspecified; Z68.41 Body mass index [BMI] 40.0-44.9, adult; G47.33 Obstructive sleep apnea (adult) (pediatric); Z99.89 Dependence on other enabling machines and devices; E78.5 Hyperlipidemia, unspecified; K21.9 Gastro-esophageal reflux disease without esophagitis; Z79.4 Long term (current) use of insulin; Z79.899 Other long term (current) drug therapy; Z88.8 Allergy status to other drugs, medicaments and biological substances
CPT/HCPCS: 01402; 36415; 64450; 73560-26-LT; 73560-LT; 80053; 82962; 85025; 85027; 85610; 85730; 87641; 97110-GP; 97116-GP; 97161-GP; 97165-GO; 97535-GO; A9270-GY; C1776; J0171; J0690; J0697; J1815; J1885; J2001; J2250; J2270; J2405; J2704; J2795; J3010; J3370; J3490; J7050; J7120

== ENCOUNTER 2019-02-21 18:07 | Emergency (ER) | payer MEDICARE, BC ==
[2019-02-21 18:17] VITALS: BP 157/74
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
[2019-02-21] MEDS ORDERED: Sodium Chloride 0.9% 500 ML IV ONE (18:49)
[2019-02-21] MEDS ORDERED: Iohexol 647 MG/ML 100 ML Bottle IVPUSH ONE (18:55)
[2019-02-21] MEDS ORDERED: Sodium Chloride 0.9% 100 ML IV SCH (19:00)
[2019-02-21] MEDS ORDERED: Sodium Chloride 0.9% 10 ML Syringe FLUSH SCH (19:00)
[2019-02-21] MEDS ORDERED: Heparin Sodium 5,000 Units/ML Vial IVPUSH ONE (20:29)
[2019-02-21] MEDS ORDERED: Heparin Sodium/D5W 25,000 UNITS/500 ML BAG IV SCH (20:30)
--- NOTE | 2019-02-22 11:16 | CT ---
CT chest Technique: Multiple axial sections through the chest were obtained. Intravenous contrast was utilized. Study performed as a pulmonary angiogram protocol. Comparison: No prior chest CT, prior chest x-ray of 08/08/18. Findings: Pulmonary arteries are moderately well opacified. No discrete filling defects are seen to indicate pulmonary embolism. Smaller pulmonary emboli within the distal subsegmental branches could be missed. Fatty infiltration is noted within the liver. No pericardial thickening is seen. Multiple mediastinal lymph nodes seen within the pretracheal and paratracheal regions. Slight adenopathy also noted within the subcarinal regions. Slightly ectatic ascending aorta is incidentally noted. Small nodule is noted within the right lower lung measuring 5 mm. Lungs show no acute change. Bone window settings were reviewed which shows no acute osseous abnormality. Mild degenerative change is scattered throughout the spine. Thyroid gland is mildly enlarged likely containing multiple nodules. Impression: 1. Multiple nonspecific lymph nodes within the mediastinum. Uncertain if this is chronic and due to old inflammatory process or represents other etiology. Recommend repeat chest CT in 6 months to evaluate for stability (August,). 2. 5 mm nodule within the right lung base. This can also be reevaluated at time of follow-up CT. 3. 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 Diagnostic code #9 I agree with preliminary report from [facility], finalized on 02/21/19, 10:19 PM Central Time
== END 2019-02-21 23:13 | disposition home or self-care (01) ==
LOC: JD.ED 18:07
DX: I12.9 Hypertensive chronic kidney disease with stage 1 through stage 4 chronic kidney disease, or unspecified chronic kidney disease (principal); N18.9 Chronic kidney disease, unspecified; E11.22 Type 2 diabetes mellitus with diabetic chronic kidney disease; E66.9 Obesity, unspecified; F32.9 Major depressive disorder, single episode, unspecified; K21.9 Gastro-esophageal reflux disease without esophagitis; Z79.4 Long term (current) use of insulin; Z79.82 Long term (current) use of aspirin; Z79.899 Other long term (current) drug therapy; Z88.8 Allergy status to other drugs, medicaments and biological substances
CPT/HCPCS: 36415; 71275; 83880; 84484; 85610; 85730; 93005; 96361; 96365; 96366; 96376; 99285; J1644; J7030; J7040; Q9967; 99284

== ENCOUNTER 2021-04-27 23:56 | Emergency (ER) | payer MEDICARE, BC ==
[2021-04-28 00:09] VITALS: BP 156/81; PULSE 74
[2021-04-28] MEDS ORDERED: Diphtheria,Pertussis(Acell),Tetanus Vaccine 0.5 ML Syringe IM ONE (00:23)
[2021-04-28] MEDS ORDERED: Lidocaine 1% PF 2 ML SDV INJECT ONE (00:45)
--- NOTE | 2021-04-28 01:08 | EDM.PDOC ---
ED HPI GENERAL MEDICAL PROBLEM - General Chief Complaint: Laceration Stated Complaint: CUT THUMB & POINTER FINGER ON RIGHT HAND Time Seen by Provider: 04/28/21 00:39 Source of Information: Reports: Patient History Limitations: Reports: No Limitations - History of Present Illness INITIAL COMMENTS - FREE TEXT/NARRATIVE: Patient is a 70-year-old male who cut his right thumb and index finger while trying to pry up a plunger in his sink at home with his pocket knife. Patient denies any bony injury but is here because the bleeding will not stop from his thumb. He is not on any blood thinners. He denies any other complaints or injuries. This occurred approximately 10 PM tonight. Patient's last tetanus was approximately 25 years ago. Onset: Today Duration: Constant Location: Reports: Upper Extremity, Right Quality: Reports: Ache Severity: Mild Improves with: Reports: None Right Finger-Thumb Pain Score (Numeric/FACES): 2 - Related Data Allergies Allergy/AdvReac Type Severity Reaction Status Date / Time [id number] Reductase AdvReac Muscle Verified 04/28/21 00:43 Inhibitor Aches Home Meds: Home Meds Ezetimibe 10 mg PO DAILY 04/29/18 [History] Metoprolol Succinate [Toprol XL 100mg] 100 mg PO DAILY 04/29/18 [History] Multivitamin [Poly-Vitamin] 1 tab PO DAILY 04/29/18 [History] Omeprazole 20 mg PO DAILY 04/29/18 [History] Sertraline [Zoloft] 200 mg PO DAILY 04/29/18 [History] hydroCHLOROthiazide [Microzide] 12.5 mg PO QAM 04/29/18 [History] metFORMIN HCl [Glucophage] 1,000 mg PO BIDMEALS 04/29/18 [History] Spironolactone [Aldactone] 50 mg PO DAILY 08/08/18 [History] SUMAtriptan [Imitrex] 50 mg PO ASDIRECTED PRN 10/01/18 [History] Aspirin [Ecotrin EC] 325 mg PO DAILY 02/21/19 [History] Glimepiride [Amaryl] 4 mg PO DAILY 02/21/19 [History] Insulin Degludec [Tresiba] 54 unit SQ DAILY 02/21/19 [History] traMADol [Ultram] 50 mg PO Q6H PRN 02/21/19 [History] Past Medical History HEENT History: Reports: Impaired Vision, Other (See Below) Other HEENT History: nasal fracture, wears glasses, has partial Cardiovascular History: Reports: High Cholesterol, Hypertension Respiratory History: Reports: Sleep Apnea Other Respiratory History: wrs cpap bipap Gastrointestinal History: Reports: Colon Polyp, Diverticulosis, GERD Genitourinary History: Reports: Chronic Renal Insuffiency, Prostate Disorder, Renal Calculus Musculoskeletal History: Reports: Osteoarthritis Neurological History: Reports: Concussion, Migraines Psychiatric History: Reports: Depression Endocrine/Metabolic History: Reports: Diabetes, Type II, Obesity/BMI 30+ Oncologic (Cancer) History: Reports: Prostate Other Oncologic History: radiation 03/12/21 Dermatologic History: Reports: Other (See Below) Other Dermatologic History: pigmented skin lesion - Past Surgical History Cardiovascular Surgical History: Reports: Other (See Below) Other Cardiovascular Surgeries/Procedures: angiogram GI Surgical History: Reports: Colonoscopy, Hernia, Abdominal Male Surgical History: Reports: Prostate Biopsy Other Male Surgeries/Procedures: prostate CA Musculoskeletal Surgical History: Reports: None Social & Family History - Family History Family Medical History: No Pertinent Family History - Tobacco Use Tobacco Use Status *Q: Never Tobacco User - Caffeine Use Caffeine Use: Reports: Soda - Recreational Drug Use Recreational Drug Use: No - Living Situation & Occupation Living situation: Reports: , with Spouse Occupation: Retired ED ROS GENERAL - Review of Systems Review Of Systems: Comprehensive ROS is negative, except as noted in HPI. ED EXAM, SKIN/RASH Exam: See Below Exam Limited By: No Limitations General Appearance: Alert, No Apparent Distress Head: Normocephalic Neck: Supple Respiratory/Chest: No Respiratory Distress GI/Abdominal: No Distention Back Exam: Full Range of Motion Extremities: Other (Positive small lacerations to the patient's right thumb and index finger. Larger of the 2 is approximately centimeter and a half in size.) Neurological: Alert, Oriented Psychiatric: Normal Affect Skin: Warm, Dry, Wound/Incision Location, Skin: Upper Extremity, Right ED SKIN PROCEDURES - Laceration/Wound Repair Right Medial Digit - 2nd (Index) Appearance: Subcutaneous Distal NVT: Neuro & Vascular Intact Anesthetic Type: Local Local Anesthesia - Lidocaine (Xylocaine): 1% Plain Local Anesthetic Volume: 3cc Skin Prep: Chlorhexidine (Hibiciens) Exploration/Debridement/Repair: In a Bloodless Field Closed with: Sutures Lac/Wound length In cm: 3 Suture Size: 4-0 # of Sutures: 4 Suture Type: Nylon Sterile Dressing Applied: Nurse Tetanus Status Addressed: Yes Complications: No Course - Vital Signs Last Recorded V/S: Last Vital Signs Temp 96.0 F L 04/28/21 00:06 Pulse 74 04/28/21 00:06 Resp 20 04/28/21 00:06 BP 156/81 H 04/28/21 00:06 Pulse Ox 92 L 04/28/21 00:06 - Orders/Labs/Meds Orders: Active Orders 24 hr Category Date Time Status Vaccines to be Administered [RC] PER UNIT ROUTINE Care 04/28/21 00:23 Active Meds: Medications Discontinued Medications Generic Name Dose Route Start Last Admin Trade Name Phoenix PRN Reason Stop Dose Admin Diphtheria/Tetanus/Acell Pertussis 0.5 ml 04/28/21 00:23 04/28/21 00:34 Diphtheria,Pertussis(Acell),Tetanus Vaccine 0.5 Ml Syringe IM 04/28/21 00:24 0.5 ml .ONCE ONE Administration Lidocaine HCl 2 ml 04/28/21 00:45 04/28/21 00:47 Lidocaine 1% Pf 2 Ml Sdv INJECT 04/28/21 00:46 2 ml ONETIME ONE Administration Departure - Departure Time of Disposition: 01:07 Disposition: Home, Self-Care 01 Condition: Good Clinical Impression: Finger laceration - Discharge Information Instructions: Laceration Care, Adult Referrals: Mateo Uribe MD [Primary Care Provider] - Additional Instructions: Suture removal in 7 days. Antibiotic ointment light coat twice a day. Return to ER sooner if any sign of infection. Keep clean and dry. Sepsis Event Note (ED) - Evaluation Sepsis Screening Result: No Definite Risk - Focused Exam Vital Signs: Vital Signs Temp Pulse Resp BP Pulse Ox 04/28/21 00:06 96.0 F L 74 20 156/81 H 92 L - My Orders Last 24 Hours: My Active Orders 04/28/21 00:23 Vaccines to be Administered [RC] PER UNIT ROUTINE - Assessment/Plan Last 24 Hours: My Active Orders 04/28/21 00:23 Vaccines to be Administered [RC] PER UNIT ROUTINE
== END 2021-04-28 01:10 | disposition home or self-care (01) ==
LOC: JD.ED 23:56
DX: S61.210A Laceration without foreign body of right index finger without damage to nail, initial encounter (principal); S61.011A Laceration without foreign body of right thumb without damage to nail, initial encounter; K21.9 Gastro-esophageal reflux disease without esophagitis; I12.9 Hypertensive chronic kidney disease with stage 1 through stage 4 chronic kidney disease, or unspecified chronic kidney disease; E11.22 Type 2 diabetes mellitus with diabetic chronic kidney disease; N18.9 Chronic kidney disease, unspecified; M19.90 Unspecified osteoarthritis, unspecified site; E66.9 Obesity, unspecified; Z68.41 Body mass index [BMI] 40.0-44.9, adult; Z23 Encounter for immunization; Z79.82 Long term (current) use of aspirin; Z79.4 Long term (current) use of insulin; Z79.899 Other long term (current) drug therapy; Z88.8 Allergy status to other drugs, medicaments and biological substances; W26.0XXA Contact with knife, initial encounter; Y92.009 Unspecified place in unspecified non-institutional (private) residence as the place of occurrence of the external cause
CPT/HCPCS: 12002; 90471; 90715; 99282; 99282-25

== ENCOUNTER 2021-05-04 13:02 | Emergency (ER) | payer MEDICARE, BC | END 2021-05-04 13:10 | LOC: JD.ED 13:02 | DX: S61.011D Laceration without foreign body of right thumb without damage to nail, subsequent encounter (principal); S61.210D Laceration without foreign body of right index finger without damage to nail, subsequent encounter; W26.0XXD Contact with knife, subsequent encounter | CPT/HCPCS: 99281 ==

== ENCOUNTER 2023-04-27 02:06 | Emergency (ER) | payer MEDICARE, BC ==
[2023-04-27 02:30] VITALS: BP 131/79; PULSE 77
[2023-04-27] MEDS ORDERED: Sodium Chloride 0.9% 10 ML Syringe FLUSH PRN (02:33)
[2023-04-27 02:39] LABS: BASOPHILS ABSOLUTE AUTO 0.05 K/mm3 (0.01-0.08); BASOPHILS PERCENT AUTO 0.9 % (0.1-1.2); EOSINOPHILS PERCENT AUTO 7.5 (0.8-7.0); HEMATOCRIT 38.9 % (40.1-51.0); IMMATURE GRAN ABSOLUTE AUTO 0.01 K/mm3 (0.00-0.10); IMMATURE GRAN PERCENT AUTO 0.2 % (<=1.0); LYMPHOCYTES ABSOLUTE AUTO 1.26 K/mm3 (1.32-3.57); LYMPHOCYTES PERCENT AUTO 23.6 % (21.8-53.1); MEAN CORPUSCULAR HEMOGLOBIN 29.2 pg (25.7-32.2); MEAN CORPUSCULAR HGB CONC 33.4 g/dl (32.2-35.5); MEAN CORPUSCULAR VOLUME 87.4 fl (79.0-92.2); MEAN PLATELET VOLUME 12.2 fl (9.4-12.3); MONOCYTES ABSOLUTE AUTO 0.56 K/mm3 (0.30-0.82); MONOCYTES PERCENT AUTO 10.5 % (5.3-12.2); NEUTROPHILS ABSOLUTE AUTO 3.07 K/mm3 (1.78-5.38); NEUTROPHILS PERCENT AUTO 57.3 % (34.0-67.9); PLATELET COUNT,PLT 162 K/mm3 (163-337); RED BLOOD CELL COUNT 4.45 M/mm3 (4.63-6.08); WHITE BLOOD CELL COUNT,WBC 5.35 K/mm3 (4.23-9.07)
[2023-04-27 02:52] LABS: INR 0.97; PROTHROMBIN TIME 10.4 SECONDS (9.7-12.0)
[2023-04-27 02:58] LABS: A/G RATIO 0.9 (1-2); ALBUMIN 3.5 g/dl (3.4-5.0); ANION GAP 16.2 (5-15); BILIRUBIN TOTAL 0.1 mg/dL (0.2-1.0); BUN/CREATININE RATIO 25.6 (14-18); CALCIUM 9.6 mg/dL (8.5-10.1); CREATININE 1.6 mg/dL (0.7-1.3); EST CRCL DRUG DOSING (CG) 42.35 mL/min; MAGNESIUM 1.6 mg/dL (1.8-2.4); POTASSIUM,K 4.2 mEq/L (3.5-5.1); PROTEIN TOTAL,TP 7.6 g/dl (6.4-8.2)
[2023-04-27] MEDS ORDERED: Iopamidol 755 Mg/ML 100 ML Bottle IVPUSH ONE (03:24)
[2023-04-27] MEDS ORDERED: Sodium Chloride 0.9% 100 ML IV SCH (03:30)
== END 2023-04-27 05:18 | disposition home or self-care (01) ==
LOC: JD.ED 02:06
DX: R07.89 Other chest pain (principal); E11.22 Type 2 diabetes mellitus with diabetic chronic kidney disease; I12.9 Hypertensive chronic kidney disease with stage 1 through stage 4 chronic kidney disease, or unspecified chronic kidney disease; N18.9 Chronic kidney disease, unspecified; K21.9 Gastro-esophageal reflux disease without esophagitis; E78.00 Pure hypercholesterolemia, unspecified; E66.9 Obesity, unspecified; Z68.41 Body mass index [BMI] 40.0-44.9, adult; Z88.8 Allergy status to other drugs, medicaments and biological substances; Z79.4 Long term (current) use of insulin; Z79.899 Other long term (current) drug therapy
CPT/HCPCS: 36415; 71045; 71275; 80053; 83735; 83880; 84484; 85025; 85379; 85610; 93005; 99285; J3490; Q9967; 93010; 99284

== ENCOUNTER 2023-11-04 06:52 | Day surgery (SDC) | payer BC, MEDICARE ==
[~2023-11-04 06:52] MED LIST changes: -Acetaminophen 325 MG Tab PO SCH; -Bisacodyl 5 MG Tab PO PRN; -Lactated Ringers 1,000 ML IV SCH; -Lidocaine 1%/Sod Bicarbonate in NS 8.4% 1 ML Syringe IDERM PRN; -Pregabalin 25 MG Cap PO SCH; +Sodium Chloride 0.9% 10 ML Syringe FLUSH SCH; -oxyCODONE ER 10 MG TAB.ER PO SCH
[2023-11-04] MEDS ORDERED: Midazolam 1 MG/ML 2 ML SDV ONE (07:00)
[2023-11-04] MEDS ORDERED: Propofol 200 MG/20 ML SDV ONE ×2 (07:00→09:10)
[2023-11-04] MEDS ORDERED: Lidocaine 1% 6 ML ONE (07:01)
[2023-11-04] MEDS: Lactated Ringers 1,000 ML IV SCH (07:15)
[2023-11-04] MEDS ORDERED: ePHEDrine 50 MG/ML SDV ONE (08:41)
[2023-11-04] MEDS: Bupivacaine 0.5% 30 ML SDV ONE (09:10)
[2023-11-04 10:31] VITALS: BP 108/75; PULSE 78
== END 2023-11-04 10:25 | disposition home or self-care (01) ==
LOC: JD.SDS 06:52
PROVIDERS: ATTEND Surgery
DX: D12.3 Benign neoplasm of transverse colon (principal); K64.4 Residual hemorrhoidal skin tags; K57.30 Diverticulosis of large intestine without perforation or abscess without bleeding; I10 Essential (primary) hypertension; E11.9 Type 2 diabetes mellitus without complications; K21.9 Gastro-esophageal reflux disease without esophagitis; E78.00 Pure hypercholesterolemia, unspecified; Z79.84 Long term (current) use of oral hypoglycemic drugs; Z79.899 Other long term (current) drug therapy
CPT/HCPCS: 45380; 46221; 88305; J0665; J2704; J7120; 00811; 99100; J2250; J3490

== ENCOUNTER 2024-09-05 10:39 | Day surgery (SDC) | payer MEDICARE ==
[~2024-09-05 10:39] MED LIST changes: +Dexamethasone 4 MG/ML 5 ML MDV ONE; +Lidocaine 2% 5 ML SDV ONE; +Midazolam 1 MG/ML 2 ML SDV ONE; +Ondansetron 4 MG/2 ML SDV ONE; +Propofol 200 MG/20 ML SDV ONE; +Ropivacaine 0.5% 5 MG/ML 30 ML SDV ONE; +ceFAZolin 2 GM Vial ONE; +dexmedeTOMIDine HCl 200 MCG/2 ML SDV ONE; +fentaNYL 100 MCG/2 ML SDV ONE; +oxyCODONE 5 MG Tab PO PRN
[2024-09-05] MEDS: Lactated Ringers 1,000 ML IV SCH (11:22)
[2024-09-05] MEDS: Acetaminophen 325 MG Tab PO ONE (11:31)
[2024-09-05] MEDS: Pregabalin 25 MG Cap PO ONE (11:31)
[2024-09-05] MEDS: Famotidine 20 MG/2 ML SDV IVPUSH ONE (11:32)
[2024-09-05] MEDS: oxyCODONE ER 10 MG TAB.ER PO ONE (11:32)
[2024-09-05 11:50] LABS: INR 1.05; PROTHROMBIN TIME 11.1 SECONDS (9.7-12.0)
[2024-09-05 11:51] LABS: PTT,PARTIAL THROMBOPLSTIN TIME 32.4 SECONDS (21.7-31.4)
[2024-09-05] MEDS ORDERED: Metoclopramide 10 MG/2 ML SDV ONE (11:58)
[2024-09-05] MEDS ORDERED: ePHEDrine 50 MG/ML SDV ONE (12:20)
[2024-09-05] MEDS ORDERED: Lactated Ringers 1,000 ML ONE (12:38)
[2024-09-05] MEDS ORDERED: HYDROmorphone 0.5 MG/0.5 ML Syringe IVPUSH PRN (12:39)
[2024-09-05] MEDS ORDERED: Ondansetron 4 MG/2 ML SDV IVPUSH PRN (12:39)
[2024-09-05] MEDS ORDERED: fentaNYL 100 MCG/2 ML SDV IVPUSH PRN (12:39)
[2024-09-05] MEDS ORDERED: Phenylephrine 1% 10 MG/ML SDV ONE (12:41)
[2024-09-05] MEDS: VANCOmycin 1 GM SDV ONE (13:36)
[2024-09-05] MEDS: Tranexamic Acid 1,000 MG/10 ML Vial ONE (13:36)
[2024-09-05 16:33] VITALS: BP 132/79; PULSE 66
== END 2024-09-05 17:05 | disposition home or self-care (01) ==
LOC: JD.SDS 10:39
PROVIDERS: ATTEND Orthopaedic Surgery
DX: M19.011 Primary osteoarthritis, right shoulder (principal); I10 Essential (primary) hypertension; E11.9 Type 2 diabetes mellitus without complications; K21.9 Gastro-esophageal reflux disease without esophagitis; E78.00 Pure hypercholesterolemia, unspecified; Z79.4 Long term (current) use of insulin; Z79.84 Long term (current) use of oral hypoglycemic drugs; Z79.899 Other long term (current) drug therapy
CPT/HCPCS: 23472; 36415; 76000; 85610; 85730; 97110; 97116; 97161; A9270; J0690; J1100; J2250; J2371; J2405; J2704; J2765; J2795; J3010; J3490; J7120; C1713; C1769; C1776